=== PATIENT | male | born 1985 | race Caucasian/White ===

== ENCOUNTER 2019-07-10 09:11 | Emergency (ER) | payer MEDICAID, OTHER ==
[~2019-07-10] VITALS: Ht 175.3 cm; Wt 87.0 kg
[~2019-07-10 09:11] MED LIST: CLIN150C2 PO; NORCO10T PO
[2019-07-10 09:19] VITALS: BP 146/98
[2019-07-10] MEDS ORDERED: proparacaine 0.5% ophthalmic drops 15ml EACHEYE ONE (09:25)
[2019-07-10] MEDS ORDERED: CIPR2.5D18 LEFTEYE (10:08)
== END 2019-07-10 10:30 | disposition home or self-care (01) ==
LOC: ER 09:11
DX: H10.9 Unspecified conjunctivitis (principal); Z79.899 Other long term (current) drug therapy
CPT/HCPCS: 99283

== ENCOUNTER 2019-09-14 06:40 | Emergency (ER) | payer MEDICAID, OTHER ==
[~2019-09-14] VITALS: Ht 172.7 cm; Wt 83.0 kg
[2019-09-14 06:44] VITALS: BP 137/90
[2019-09-14] MEDS ORDERED: SULF1TAB49 PO (06:54)
[2019-09-14] MEDS ORDERED: CEPH-572 PO (06:54)
[2019-09-14] MEDS ORDERED: acetaminophen 325mg tablet PO ONE (07:00)
[2019-09-14] MEDS ORDERED: TETanus/Pertussis (Acell)/Diphther VAC/PF (Tdap-Adult) 0.5ml syringe IMVAC ONE (07:00)
[2019-09-14] MEDS ORDERED: ibuprofen tablet 400 MG TABLET PO ONE (07:00)
== END 2019-09-14 07:21 | disposition home or self-care (01) ==
LOC: ER 06:40
DX: L02.211 Cutaneous abscess of abdominal wall (principal); Z79.899 Other long term (current) drug therapy
CPT/HCPCS: 90471; 90715; 99283

== ENCOUNTER 2019-09-15 23:32 | Emergency (ER) | payer OTHER ==
[~2019-09-15] VITALS: Ht 175.3 cm; Wt 84.0 kg
[~2019-09-15 23:32] MED LIST changes: +CEPH-572 PO; +SULF1TAB49 PO
[2019-09-16 00:37] VITALS: BP 131/67
--- NOTE | 2019-09-16 00:38 | NUR ---
completed. Pt to have i&d.
--- NOTE | 2019-09-16 00:46 | NUR ---
VERBAL RECEIVED FOR NORCO AND TORADOL PRIOR TO I&D FROM ARSH ALANIS
[2019-09-16] MEDS ORDERED: HYDROcodone/acetaminophen 5mg/325mg tablet PO ONE (00:50)
[2019-09-16] MEDS ORDERED: ketorolac trometh. 30mg/ml inj. IM ONE (00:50)
[2019-09-16] MEDS ORDERED: CefTRIAXone 1000mg IM Kit (w/lidocaine diluent) IM ONE (01:05)
== END 2019-09-16 01:56 | disposition home or self-care (01) ==
LOC: ER 23:32
DX: L03.314 Cellulitis of groin (principal); L02.214 Cutaneous abscess of groin; Z79.2 Long term (current) use of antibiotics; Z79.899 Other long term (current) drug therapy
CPT/HCPCS: 10060; 96372; 99284; J0696; J1885; 12011